=== PATIENT | male | born 1990 | race Caucasian/White ===

== ENCOUNTER 2019-03-21 11:26 | Observation (INO) ==
[2019-03-21 12:25] LABS: Basophils % 0.4 %; Eosinophils # 0.2 K/mcL (0.0-0.6); Eosinophils % 2.7 %; Hematocrit 47.8 % (37.5-50.1); Hemoglobin 16.3 g/dL (12.9-16.9); Immature Granulocytes % 0.5 % (0-4); Lymphocytes # 1.7 K/mcL (0.6-4.6); Lymphocytes % 22.6 %; Mean Corpuscular HGB Conc 34.1 g/dL (31.6-35.5); Mean Corpuscular Hemoglobin 28.7 pg (28.0-33.3); Mean Corpuscular Volume 84.2 fL (83.0-100.0); Mean Platelet Volume 12.3 fL (9.4-12.4); Monocytes # 0.8 K/mcL (0.0-1.3); Monocytes % 11.1 %; Neutrophils # 4.7 K/mcL (1.6-8.9); Platelet Count 148 K/mcL (140-400); Red Blood Count 5.68 M/mcL (4.19-5.50); Red Cell Distribution Width 12.8 % (11.5-14.5); Segmented Neutrophils % 62.7 %; White Blood Count 7.5 K/mcL (4.3-11.1)
[2019-03-21 12:32] LABS: Bilirubin,Urine Small (Negative); Blood,Urine Negative (Negative); Clarity,Urine Clear (Clear); Color,Urine Dark Yellow (Yellow); Glucose,Urine (UA) Normal (Normal); Ketones,Urine Negative (Negative); Leukocyte Esterase,Urine Negative (Negative); Nitrite,Urine Negative (Negative); PH,Urine 5.5 pH Units (5.0-8.0); Protein,Urine 30 mg/dL (Neg-Trace); Specific Gravity,Urine 1.024 (1.010-1.025); Urobilinogen,Urine Normal (Normal)
[2019-03-21] MEDS ORDERED: *HR* HYDROcodone/Acet 10/325 mg TABLET PO ONE (12:32)
[2019-03-21] MEDS ORDERED: Ibuprofen 800 MG TABLET PO ONE (12:32)
[2019-03-21] MEDS ORDERED: Ondansetron ODT 4 MG TAB.RAPDIS SL ONE (12:33)
[2019-03-21 12:35] LABS: Bacteria,Urine None Seen per hpf (None-Few); Hyaline Casts,Urine None Seen per lpf (None-Few); RBC,Urine 0-3 per hpf (0-3); Squamous Epithelial Cell,Urine Few per lpf (None-Few); WBC,Urine 0-3 per hpf (0-3)
[2019-03-21 12:46] LABS: Alanine Aminotransferase 91 Units/L (7-52); Albumin 4.9 g/dL (3.5-5.7); Albumin/Globulin Ratio 1.6 (1.1-2.2); Alkaline Phosphatase 96 Units/L (34-104); Aspartate Amino Transferase 50 Units/L (13-39); BUN/Creatinine Ratio 11 (6-26); Bilirubin,Direct 0.2 mg/dL (0.0-0.2); Bilirubin,Indirect 0.5 mg/dL (0.0-1.2); Bilirubin,Total 0.7 mg/dL (0.3-1.0); Blood Urea Nitrogen 11 mg/dL (6-20); Calcium 9.6 mg/dL (8.6-10.3); Carbon Dioxide 25 mEq/L (23-29); Chloride 98 mEq/L (98-107); Glucose 101 mg/dL (70-105); Lipase 26 Units/L (11-82); Osmolality,Calculated 286 (280-300); Potassium 3.9 mEq/L (3.5-5.1); Sodium 138 mEq/L (136-145); Total Protein 7.9 g/dL (6.4-8.9); eGFR For African Americans > 60 (> 60); eGFR For Non-African Americans > 60 (> 60)
[2019-03-21] MEDS ORDERED: *HR* FentaNYL (PF) 100 MCG/2 ML VIAL IVP ONE (13:04)
[2019-03-21] MEDS ORDERED: 0.9 % Sodium Chloride 1,000 ML IVC SCH (14:00)
[2019-03-21] MEDS ORDERED: Acetaminophen IV 1,000 MG/100 ML INFUS..BTL IVPB ONE (14:13)
[2019-03-21] MEDS ORDERED: Famotidine 20 MG/2 ML VIAL IVP ONE (14:13)
[2019-03-21] MEDS ORDERED: Acetaminophen IV 1,000 MG/100 ML INFUS..BTL ONE (14:21)
[2019-03-21] MEDS ORDERED: *HR* Rocuronium Bromide 50 MG/5 ML VIAL ONE (14:22)
[2019-03-21] MEDS ORDERED: Ondansetron 4 MG/2 ML VIAL ONE (14:22)
[2019-03-21] MEDS ORDERED: Famotidine 20 MG/2 ML VIAL ONE (14:22)
[2019-03-21] MEDS ORDERED: Dexamethasone 4 MG/ML VIAL ONE (14:22)
[2019-03-21] MEDS ORDERED: *HR* Midazolam HCl 2 MG/2 ML VIAL ONE (14:22)
[2019-03-21] MEDS ORDERED: *HR* FentaNYL (PF) 100 MCG/2 ML VIAL ONE (14:22)
[2019-03-21] MEDS ORDERED: *HR* Propofol 200 MG/20 ML VIAL IVP ONE ×2 (14:22→15:39)
[2019-03-21] MEDS ORDERED: *HR* Succinylcholine 200 MG/10 ML VIAL IVP ONE (14:22)
[2019-03-21] MEDS ORDERED: Lidocaine -MPF 2% 2 ML VIAL ONE (14:22)
[2019-03-21] MEDS ORDERED: Ringers Solution, Lactated 1,000 ML IVC SCH (14:40)
[2019-03-21] MEDS ORDERED: cefOXitin 2,000 MG in Water for inj. (sterile) 20 ML IVP ONE (15:37)
[2019-03-21] MEDS ORDERED: CefOXitin 2,000 MG VIAL ONE (15:41)
[2019-03-21] MEDS ORDERED: Isovue-300 50ML VIAL ONE (15:58)
[2019-03-21] MEDS ORDERED: *HR* HYDROMORPHONE 2 MG/ML VIAL ONE (16:12)
[2019-03-21] MEDS ORDERED: Ondansetron 4 MG/2 ML VIAL IVP ONE (17:16)
[2019-03-21] MEDS ORDERED: *HR* Promethazine 25 MG/ML VIAL IVP PRN (17:16)
[2019-03-21] MEDS: *HR* HYDROmorphone (PF) 1 MG/ML SYRINGE IVP PRN ×3 (17:53→18:08)
[2019-03-21] MEDS: 0.9 % Sodium Chloride 1,000 ML IVC SCH (20:08)
[2019-03-21] MEDS: *HR* OxyCODONE/APAP 5/325 TABLET PO PRN (23:52)
[2019-03-21] MEDS: cefOXitin 2,000 MG in Water for inj. (sterile) 20 ML IVP SCH (23:53)
[2019-03-22] MEDS: 0.9 % Sodium Chloride 1,000 ML IVC SCH (06:59)
[2019-03-22] MEDS ORDERED: Ibuprofen 800 MG TABLET PO ONE (07:52)
[2019-03-22] MEDS: *HR* OxyCODONE/APAP 5/325 TABLET PO PRN (09:10)
[2019-03-22] MEDS: cefOXitin 2,000 MG in Water for inj. (sterile) 20 ML IVP SCH (09:14)
[2019-03-22 11:08] VITALS: BP 104/60
== END 2019-03-22 13:53 | disposition home or self-care (01) ==
LOC: 3ANU 11:26 → EMEROOARM 11:26 → 3ANU 14:30
PROVIDERS: ADMIT Surgery; ATTEND Surgery